=== PATIENT | female | born 1940 | race Caucasian/White ===

== ENCOUNTER 2018-12-30 11:08 | Inpatient (IN) | payer MEDICARE, OTHER ==
[2018-12-30 11:45] LABS: ADD MAN DIFF? NO
[2018-12-30] MEDS: FAMOTIDINE 20 MG INJ IV (11:46)
[2018-12-30] MEDS: ONDANSETRON 4 MG INJ IV ×3 (11:47→23:01)
[2018-12-30] MEDS: SOD CHLORIDE 0.9% 1,000 ML IV (11:47)
[2018-12-30 11:54] LABS: BASOPHILS % 0.2 % (0.0-2.0); EOSINOPHILS # 0.1 10^3/ul (0.0-0.5); EOSINOPHILS % 1.7 % (0.0-7.0); HEMATOCRIT 36.9 % (37.0-47.0); HEMOGLOBIN 11.6 g/dl (12.0-16.0); LYMPHOCYTES # 1.4 10^3/ul (0.8-2.9); LYMPHOCYTES % 21.6 % (15.0-51.0); MEAN CORPUSCULAR HEMOGLOBIN 25.9 pg (29.0-33.0); MEAN CORPUSCULAR HGB CONC 31.4 g/dl (32.0-37.0); MEAN CORPUSCULAR VOLUME 82.4 fl (82.0-101.0); MEAN PLATELET VOLUME 9.9 fl (7.4-10.4); MONOCYTE # 0.4 10^3/ul (0.3-0.9); MONOCYTES % 6.7 % (0.0-11.0); NEUTROPHIL # 4.4 10^3/ul (1.6-7.5); NEUTROPHILS % 69.5 % (39.0-77.0); PLATELET COUNT 212 10^3/UL (140-415); RED BLOOD COUNT 4.48 10^6/ul (4.20-5.40); RED CELL DISTRIBUTION WIDTH 14.2 % (11.5-14.5)
[2018-12-30 11:54] LABS: WHITE BLOOD COUNT 6.4 10^3/ul (4.8-10.8)
[2018-12-30] MEDS: hydrALAzine 20 MG INJ IV (12:05)
[2018-12-30] MEDS: MECLIZINE 12.5 MG TAB PO (12:05)
[2018-12-30 12:08] LABS: ALANINE AMINOTRANSFERASE 11 IU/L (13-69); ALBUMIN 4.5 g/dl (3.3-4.9); ALBUMIN/GLOBULIN RATIO 1.45; ALKALINE PHOSPHATASE 79 IU/L (42-121); AMYLASE 61 U/L (11-123); ANION GAP 8 (5-13); ASPARTATE AMINO TRANSFERASE 18 IU/L (15-46); BILIRUBIN,INDIRECT 0.2 mg/dl (0-1.1); BILIRUBIN,TOTAL 0.2 mg/dl (0.2-1.3); BLOOD UREA NITROGEN 18 mg/dl (7-20); CALCIUM 9.3 mg/dl (8.4-10.2); CARBON DIOXIDE 26 mmol/L (21-31); CHLORIDE 105 mmol/L (97-110); CREATININE 0.55 mg/dl (0.44-1.00); GLUCOSE 128 mg/dl (70-220); LIPASE 58 U/L (23-300); POTASSIUM 3.6 mmol/L (3.5-5.1); SODIUM 139 mmol/L (135-144); TOTAL PROTEIN 7.6 g/dl (6.1-8.1)
[2018-12-30 12:10] LABS: PROTIME 12.3 Sec (11.9-14.9)
[2018-12-30 12:11] LABS: PARTIAL THROMBOPLASTIN TIME 27.4 Sec (23.0-35.0)
[2018-12-30 12:19] LABS: TROPONIN-I < 0.012 ng/ml (0.000-0.120)
[2018-12-30 13:15] LABS: ADD UMIC YES; UR ASCORBIC ACID 40 mg/dL (NEGATIVE); UR BILIRUBIN (Dip) NEGATIVE (NEGATIVE); UR BLOOD (Dip) NEGATIVE (NEGATIVE); UR CLARITY CLEAR (CLEAR); UR COLOR STRAW (YELLOW); UR GLUCOSE (Dip) NEGATIVE (NEGATIVE); UR KETONES (Dip) TRACE mg/dL (NEGATIVE); UR LEUKOCYTE ESTERASE (Dip) 2+ Leu/ul (NEGATIVE); UR NITRITE (Dip) NEGATIVE (NEGATIVE); UR RBC 1 /HPF (0-5); UR SPECIFIC GRAVITY (Dip) 1.011 (1.003-1.030); UR SQUAMOUS EPITHELIAL CELL FEW /HPF (FEW); UR TOTAL PROTEIN (Dip) 1+ mg/dl (NEGATIVE); UR UROBILINOGEN (Dip) NEGATIVE (NEGATIVE); UR WBC 19 /HPF (0-5)
[2018-12-30] MEDS: NICARDipine HCL 30 MG CAPSULE PO ×2 (13:49)
[2018-12-30] MEDS: niCARdipine-NS 0.1MG/ML DRIP 200 ML IV (14:17)
[2018-12-30] MEDS: METOCLOPRAMIDE 10 MG INJ IV (14:17)
[2018-12-30] MEDS: niCARdipine 25 MG in SOD CHLORIDE 0.9% 240 ML IV ×3 (14:17→21:10)
[2018-12-30] MEDS: DIAZEPAM 5 MG/ML SYG IV (14:17)
[2018-12-30] MEDS: CEFTRIAXONE 1 GM/50 ML (PMX) 50 ML IVPB ×2 (14:18→16:30)
[2018-12-30] MEDS: SOD CHLORIDE 0.9% 100 ML (15:37)
[2018-12-30] MEDS: IOHEXOL 100 ML (15:37)
[2018-12-30] MEDS ORDERED: DOCUSATE SODIUM 100 MG CAP PO (16:30)
[2018-12-30] MEDS ORDERED: NACL 0.9% 3 ML SYG IV (16:30)
[2018-12-30] MEDS ORDERED: LABETALOL HCL 20MG INJ IV (16:30)
[2018-12-30] MEDS ORDERED: morphine 2 MG INJ IV (16:30)
[2018-12-30] MEDS ORDERED: HYDROCODONE/APAP (5/325) TAB PO (16:30)
[2018-12-30] MEDS: ERGOCALCIFEROL 50,000 UNIT CAP PO ×2 (16:30→22:27)
[2018-12-30] MEDS ORDERED: ACETAMINOPHEN 325 MG TAB PO (16:30)
[2018-12-30] MEDS ORDERED: BRIMONIDINE 0.2%-TIMOLOL 0.5% 5ML OPH BOTH EYES (21:00)
[2018-12-30] MEDS: LOSARTAN 50 MG TAB PO (21:09)
[2018-12-30] MEDS: BIMATOPROST 0.01% 2.5 ML BTL BOTH EYES (21:09)
[2018-12-30] MEDS: DONEPEZIL 5 MG TAB PO (21:09)
[2018-12-30] MEDS: BRIMONIDINE 0.2% 5 ML BTL BOTH EYES (22:56)
[2018-12-30] MEDS: TIMOLOL 0.5% 5 ML OPH BOTH EYES (22:59)
[2018-12-31] MEDS: TIMOLOL 0.5% 5 ML OPH BOTH EYES ×3 (00:27→21:03)
[2018-12-31] MEDS: BRIMONIDINE 0.2% 5 ML BTL BOTH EYES ×2 (00:27→20:47)
[2018-12-31] MEDS: niCARdipine 25 MG in SOD CHLORIDE 0.9% 240 ML IV (06:05)
[2018-12-31 06:10] LABS: ADD MAN DIFF? NO
[2018-12-31 06:17] LABS: WHITE BLOOD COUNT 8.3 10^3/ul (4.8-10.8)
[2018-12-31 06:17] LABS: BASOPHILS % 0.1 % (0.0-2.0); EOSINOPHILS % 0.2 % (0.0-7.0); HEMATOCRIT 37.4 % (37.0-47.0); HEMOGLOBIN 11.9 g/dl (12.0-16.0); LYMPHOCYTES # 1.3 10^3/ul (0.8-2.9); LYMPHOCYTES % 15.9 % (15.0-51.0); MEAN CORPUSCULAR HEMOGLOBIN 26.4 pg (29.0-33.0); MEAN CORPUSCULAR HGB CONC 31.8 g/dl (32.0-37.0); MEAN CORPUSCULAR VOLUME 82.9 fl (82.0-101.0); MEAN PLATELET VOLUME 9.9 fl (7.4-10.4); MONOCYTE # 0.5 10^3/ul (0.3-0.9); MONOCYTES % 6.5 % (0.0-11.0); NEUTROPHIL # 6.4 10^3/ul (1.6-7.5); NEUTROPHILS % 76.9 % (39.0-77.0); PLATELET COUNT 210 10^3/UL (140-415); RED BLOOD COUNT 4.51 10^6/ul (4.20-5.40); RED CELL DISTRIBUTION WIDTH 14.3 % (11.5-14.5)
[2018-12-31 07:02] LABS: ANION GAP 13 (5-13); BLOOD UREA NITROGEN 12 mg/dl (7-20); CALCIUM 9.4 mg/dl (8.4-10.2); CARBON DIOXIDE 27 mmol/L (21-31); CHLORIDE 101 mmol/L (97-110); CREATININE 0.52 mg/dl (0.44-1.00); GLUCOSE 103 mg/dl (70-220); POTASSIUM 3.2 mmol/L (3.5-5.1); SODIUM 141 mmol/L (135-144)
[2018-12-31] MEDS: ONDANSETRON 4 MG INJ IV ×3 (09:33→22:25)
[2018-12-31 09:53] LABS: HEMOGLOBIN A1C 5.6 % (0-5.9)
[2018-12-31] MEDS ORDERED: LORAZEPAM 2 MG INJ (11:04)
[2018-12-31] MEDS: METOPROLOL 25 MG TAB PO ×2 (11:08→20:51)
[2018-12-31] MEDS: AMLODIPINE 5 MG TAB PO (11:08)
[2018-12-31] MEDS: LOSARTAN 50 MG TAB PO ×2 (11:09→20:50)
[2018-12-31] MEDS: CITALOPRAM 20 MG TAB PO (11:09)
[2018-12-31] MEDS: BIMATOPROST 0.01% 2.5 ML BTL BOTH EYES ×2 (11:10→21:03)
[2018-12-31] MEDS: LORAZEPAM 2 MG INJ IV (11:11)
[2018-12-31] MEDS: ENOXAPARIN 40 MG/0.4 ML SYG SC (11:21)
[2018-12-31] MEDS: CEFTRIAXONE 1 GM/50 ML (PMX) 50 ML IVPB (16:40)
[2018-12-31] MEDS: DONEPEZIL 5 MG TAB PO (20:49)
[2019-01-01] MEDS: ZOLPIDEM 5 MG TAB PO (00:08)
[2019-01-01] MEDS: HALOPERIDOL 5 MG INJ IM (01:22)
[2019-01-01] MEDS: ONDANSETRON 4 MG INJ IV ×2 (04:34→09:32)
[2019-01-01] MEDS: hydrALAzine 20 MG INJ IV (05:42)
[2019-01-01 06:48] LABS: ADD MAN DIFF? NO
[2019-01-01 06:53] LABS: BASOPHILS % 0.1 % (0.0-2.0); EOSINOPHILS # 0.1 10^3/ul (0.0-0.5); EOSINOPHILS % 0.9 % (0.0-7.0); HEMATOCRIT 36.9 % (37.0-47.0); HEMOGLOBIN 11.6 g/dl (12.0-16.0); LYMPHOCYTES # 1.6 10^3/ul (0.8-2.9); LYMPHOCYTES % 21.1 % (15.0-51.0); MEAN CORPUSCULAR HGB CONC 31.4 g/dl (32.0-37.0); MEAN CORPUSCULAR VOLUME 82.7 fl (82.0-101.0); MEAN PLATELET VOLUME 9.9 fl (7.4-10.4); MONOCYTE # 0.5 10^3/ul (0.3-0.9); MONOCYTES % 6.8 % (0.0-11.0); NEUTROPHIL # 5.4 10^3/ul (1.6-7.5); NEUTROPHILS % 70.8 % (39.0-77.0); PLATELET COUNT 204 10^3/UL (140-415); RED BLOOD COUNT 4.46 10^6/ul (4.20-5.40); RED CELL DISTRIBUTION WIDTH 14.3 % (11.5-14.5)
[2019-01-01 06:53] LABS: WHITE BLOOD COUNT 7.6 10^3/ul (4.8-10.8)
[2019-01-01 07:35] LABS: ANION GAP 14 (5-13); BLOOD UREA NITROGEN 15 mg/dl (7-20); CALCIUM 9.6 mg/dl (8.4-10.2); CARBON DIOXIDE 28 mmol/L (21-31); CHLORIDE 100 mmol/L (97-110); CREATININE 0.63 mg/dl (0.44-1.00); GLUCOSE 108 mg/dl (70-220); MAGNESIUM 1.9 mg/dl (1.7-2.5); PHOSPHORUS 3.7 mg/dl (2.5-4.9); POTASSIUM 3.5 mmol/L (3.5-5.1); SODIUM 142 mmol/L (135-144)
[2019-01-01] MEDS: TIMOLOL 0.5% 5 ML OPH BOTH EYES (09:27)
[2019-01-01] MEDS: METOPROLOL 25 MG TAB PO (09:27)
[2019-01-01] MEDS: BRIMONIDINE 0.2% 5 ML BTL BOTH EYES (09:27)
[2019-01-01] MEDS: AMLODIPINE 5 MG TAB PO ×2 (09:27→10:23)
[2019-01-01] MEDS: LOSARTAN 50 MG TAB PO (09:28)
[2019-01-01] MEDS: CITALOPRAM 20 MG TAB PO (09:28)
[2019-01-01] MEDS: ENOXAPARIN 40 MG/0.4 ML SYG SC (09:31)
[2019-01-02] MEDS ORDERED: AMLODIPINE 10 MG TAB PO (09:00)
== END 2019-01-01 14:18 | disposition home or self-care (01) | DRG 304 ==
LOC: TEL 12-31 22:05 → E/R 11:08 → ICU 14:02
DX: I16.1 Hypertensive emergency (principal); G93.6 Cerebral edema; N39.0 Urinary tract infection, site not specified; I67.1 Cerebral aneurysm, nonruptured; G30.9 Alzheimer's disease, unspecified; F02.80 Dementia in other diseases classified elsewhere, unspecified severity, without behavioral disturbance, psychotic disturbance, mood disturbance, and anxiety; I10 Essential (primary) hypertension; F32.9 Major depressive disorder, single episode, unspecified; Z66 Do not resuscitate
CPT/HCPCS: 36415; 70450; 70496; 71045; 80048; 80053; 81001; 82150; 83036; 83690; 83735; 84100; 84484; 85025; 85610; 85730; 87081; 87086; 87400; 93005; 96361; 96374; 96375; 96376; 99291-25